=== PATIENT | male | born 1985 | race Hispanic/Latino ===

== ENCOUNTER 2022-03-23 11:51 | Emergency (ER) | payer SELFPAY ==
[~2022-03-23] VITALS: Ht 165.1 cm; Wt 79.0 kg
[2022-03-23] MEDS ORDERED: TOBREX OPTH5 ML/BTL OU (12:54)
[2022-03-23 13:00] VITALS: BP 125/77
== END 2022-03-23 13:10 | disposition home or self-care (01) | DRG 125 ==
LOC: ED 11:51
DX: H11.32 Conjunctival hemorrhage, left eye (principal); W01.198A Fall on same level from slipping, tripping and stumbling with subsequent striking against other object, initial encounter

== ENCOUNTER 2022-05-13 16:31 | Emergency (ER) | payer SELFPAY ==
[~2022-05-13] VITALS: Ht 165.1 cm; Wt 80.0 kg
[~2022-05-13 16:31] MED LIST: TOBREX OPTH5 ML/BTL OU
[2022-05-13 19:13] VITALS: BP 144/80
[2022-05-13 19:15] VITALS: BP 130/85
[2022-05-13 19:30] VITALS: BP 134/89
[2022-05-13] MEDS ORDERED: PREDNISONE10 MG PO (19:36)
[2022-05-13 19:45] VITALS: BP 135/91
== END 2022-05-13 20:00 | disposition home or self-care (01) | DRG 596 ==
LOC: ED 16:31
DX: L40.9 Psoriasis, unspecified (principal)